=== PATIENT | female | born 1970 | race African-American/Black ===

== ENCOUNTER → 2017-05-12 | Day surgery (SDC) | payer OTHER ==
[~2017-05-12] VITALS: Ht 170.2 cm; Wt 84.1 kg
[2017-05-12 09:30] LABS: HCT 38.3 % (37.0-47.0); HGB 12.8 g/dl (12.5-16.0); MCH 27.5 pg (25.0-31.0); MCHC 33.4 g/dL (32.0-36.0); MCV 82.2 fL (78.0-100.0); MPV 11.3 fL (6.0-9.5); RBC 4.66 M/uL (4.20-5.40); RDW 14.6 % (11.5-14.0); WBC 8.2 K/uL (4.0-10.5)
[2017-05-12 10:20] LABS: ALBUMIN 3.9 g/dL (3.5-5.0); BILIRUBIN - TOTAL 0.5 mg/dL (0.1-1.0); CREATININE 0.7 mg/dL (0.5-1.0); GLOBULIN (CALCULATION) 3.4 g/dL (2.2-4.2); POTASSIUM 3.4 mmol/L (3.5-5.1); TOTAL PROTEIN 7.3 g/dL (6.4-8.3)
== END | disposition home or self-care (01) ==
LOC: FAS 08:18
PROVIDERS: Surgery
DX: N60.11 Diffuse cystic mastopathy of right breast (principal); N62 Hypertrophy of breast; I10 Essential (primary) hypertension; M19.90 Unspecified osteoarthritis, unspecified site; J45.909 Unspecified asthma, uncomplicated; E66.3 Overweight; Z68.29 Body mass index [BMI] 29.0-29.9, adult; Z88.0 Allergy status to penicillin; Z91.013 Allergy to seafood; Z88.8 Allergy status to other drugs, medicaments and biological substances; Z90.710 Acquired absence of both cervix and uterus; Z90.89 Acquired absence of other organs; Z90.721 Acquired absence of ovaries, unilateral; Z98.51 Tubal ligation status; Z82.62 Family history of osteoporosis; Z81.1 Family history of alcohol abuse and dependence; Z80.3 Family history of malignant neoplasm of breast; Z80.0 Family history of malignant neoplasm of digestive organs; Z82.3 Family history of stroke; Z83.3 Family history of diabetes mellitus; Z79.899 Other long term (current) drug therapy; Z98.890 Other specified postprocedural states
CPT/HCPCS: 36415; 76098; 80053; 88307; J1100; J2405; J2704; J3010